=== PATIENT | female | born 1995 | race Caucasian/White ===

== ENCOUNTER 2017-05-14 14:23 | Emergency (ER) | payer SELFPAY ==
[~2017-05-14] VITALS: Ht 167.6 cm; Wt 100.0 kg
[~2017-05-14 14:23] MED LIST: BENTYL10 MG PO; MACROBID 1100 MG/CAP PO; NORCO 325 MG-51 TAB PO; PRILOSEC 20MG20 MG PO; ULTRAM 50MG TAB50 MG PO; [UNRECOGNIZED DRUG - OTHER] PO
[2017-05-14 14:27] VITALS: BP 135/94; TEMP 97.9
[2017-05-14] MEDS ORDERED: TYLENOL 325MG325 MG PO (14:48)
[2017-05-14] MEDS ORDERED: TYLENOL 500MG500 MG PO (14:49)
[2017-05-14] MEDS ORDERED: ORAL PAIN REL9.35 GM MM (14:49)
[2017-05-14] MEDS ORDERED: CLEOCIN HCL300 MG PO (15:30)
[2017-05-14 16:05] VITALS: PULSE 68
== END 2017-05-14 16:05 | disposition home or self-care (01) ==
LOC: COL.ER 14:23
DX: K02.9 Dental caries, unspecified (principal); Z90.49 Acquired absence of other specified parts of digestive tract

== ENCOUNTER 2019-02-08 18:08 | Emergency (ER) | payer OTHER ==
[~2019-02-08] VITALS: Ht 165.1 cm; Wt 70.0 kg
[~2019-02-08 18:08] MED LIST changes: +CLEOCIN HCL300 MG PO; +ORAL PAIN REL9.35 GM MM; +TYLENOL 325MG325 MG PO; +TYLENOL 500MG500 MG PO
[2019-02-08 18:18] VITALS: TEMP 97.7
[2019-02-08 19:04] LABS: COLLECTION METHOD CLEAN CATCH
[2019-02-08 19:09] LABS: BASO % 0.5 % (0.0-2.0); EOS # 0.4 (0.0-0.7); EOS % 4.2 % (0-4.0); GRAN # 5.6 (1.4-6.5); GRAN % 62.7 % (42.2-75.2); HEMATOCRIT 39.9 % (37.0-47.0); HEMOGLOBIN 13.5 g/dl (12.5-16.0); LYMPH # 2.2 (1.2-3.4); LYMPH % 24.5 % (20.0-51.0); MEAN CELL VOLUME 89 fl (80.0-100.0); MEAN CORPUSCULAR HEMOGLOBIN 30 pg (27.0-31.0); MEAN CORPUSCULAR HGB CONC 34 g/dl (33.0-37.0); MEAN PLATELET VOLUME 10.3 fl (7.4-10.4); MONO # 0.7 (0.1-0.6); MONO % 7.8 % (1.7-9.3); PLATELET COUNT 233 K/mm3 (130-400); RED BLOOD COUNT 4.48 M/mm3 (4.10-5.30); REDCELL DISTRIBUTION WIDTH-CV 11.4 % (11.5-14.5)
[2019-02-08 19:12] LABS: MUCOUS Present /lpf; PH 5 (5-8); SQUAMOUS EPITHELIAL 0-2 /hpf; URINE APPEARANCE Clear; URINE BACTERIA None Seen /hpf; URINE BILIRUBIN Negative (NEGATIVE); URINE BLOOD 2+ (NEGATIVE); URINE COLOR Yellow; URINE GLUCOSE Negative (NEGATIVE); URINE KETONE Negative (NEGATIVE); URINE LEUKOCYTE ESTERASE Negative (NEGATIVE); URINE NITRATE Negative (NEGATIVE); URINE PROTEIN(semi-quant) Negative (NEGATIVE); URINE RBC 0-2 /hpf; URINE UROBILINOGEN Negative (NEGATIVE)
[2019-02-08 19:20] LABS: ALANINE AMINOTRANSFERASE 20 U/L (9-52); ALBUMIN 3.9 gm/dL (3.5-5.0); ALKALINE PHOSPHATASE 66 U/L (50-136); ANION GAP 6 mmol/L (7-16); AST,SGOT 20 U/L (15-37); BILIRUBIN,TOTAL 0.5 mg/dL (0.0-1.0); BLOOD UREA NITROGEN 7 mg/dL (7-17); CALCIUM 9.1 mg/dL (8.4-10.2); CARBON DIOXIDE 27 mmol/L (22-30); CHLORIDE 104 mmol/L (98-107); CREATININE, serum 0.46 (0.52-1.25); GLUCOSE 88 mg/dL (74-106); POTASSIUM 3.8 mmol/L (3.4-5.0); SODIUM 137 mmol/L (137-145)
[2019-02-08 19:22] LABS: C-REACTIVE PROTEIN < 0.5 mg/dL (0.0-0.9)
[2019-02-08 20:23] VITALS: BP 115/71; PULSE 75
== END 2019-02-08 20:24 | disposition home or self-care (01) ==
LOC: COL.ER 18:08
PROVIDERS: Physician Assistant
DX: N94.6 Dysmenorrhea, unspecified (principal)
CPT/HCPCS: J1885; J2405; J7030

== ENCOUNTER 2019-05-27 17:59 | Emergency (ER) | payer OTHER ==
[~2019-05-27] VITALS: Ht 167.6 cm; Wt 70.0 kg
[2019-05-27 18:14] VITALS: BP 131/77; TEMP 98.7
[2019-05-27] MEDS ORDERED: CLEOCIN HCL300 MG PO (18:34)
[2019-05-27 19:50] VITALS: PULSE 80
== END 2019-05-27 19:50 | disposition home or self-care (01) ==
LOC: COL.ER 17:59
DX: S00.93XA Contusion of unspecified part of head, initial encounter (principal); S80.12XA Contusion of left lower leg, initial encounter; M54.2 Cervicalgia; R40.2412 Glasgow coma scale score 13-15, at arrival to emergency department; V89.2XXA Person injured in unspecified motor-vehicle accident, traffic, initial encounter

== ENCOUNTER 2019-08-06 14:53 | Emergency (ER) | payer OTHER ==
[~2019-08-06] VITALS: Ht 167.6 cm; Wt 67.7 kg
[2019-08-06 14:57] VITALS: BP 115/64; TEMP 98.8
[2019-08-06] MEDS ORDERED: TYLENOL 500MG500 MG PO (15:02)
[2019-08-06] MEDS ORDERED: ZOFRAN ODT4 MG PO (16:43)
[2019-08-06 16:55] VITALS: PULSE 74
== END 2019-08-06 16:55 | disposition home or self-care (01) ==
LOC: COL.ER 14:53
DX: S09.90XA Unspecified injury of head, initial encounter (principal); W18.39XA Other fall on same level, initial encounter; W22.8XXA Striking against or struck by other objects, initial encounter; Y93.39 Activity, other involving climbing, rappelling and jumping off; Z32.02 Encounter for pregnancy test, result negative

== ENCOUNTER 2019-09-03 18:44 | Emergency (ER) | payer OTHER ==
[~2019-09-03] VITALS: Ht 167.6 cm; Wt 68.2 kg
[~2019-09-03 18:44] MED LIST changes: +ZOFRAN ODT4 MG PO
[2019-09-03 18:59] VITALS: TEMP 98.3
[2019-09-03] MEDS ORDERED: ANTIVERT 25MG25 MG PO (20:40)
[2019-09-03 20:59] VITALS: BP 104/62; PULSE 90
== END 2019-09-03 21:01 | disposition home or self-care (01) ==
LOC: COL.ER 18:44
DX: H81.10 Benign paroxysmal vertigo, unspecified ear (principal); F17.210 Nicotine dependence, cigarettes, uncomplicated

== ENCOUNTER → 2019-11-07 | Outpatient (CLI) | payer OTHER ==
[~2019-11-07] MED LIST changes: +ANTIVERT 25MG25 MG PO; +PREDNISONE20 MG PO
== END ==
LOC: BHSO 11:08
DX: F41.0 Panic disorder [episodic paroxysmal anxiety] (principal)